=== PATIENT | female | born 1995 | race Caucasian/White ===

== ENCOUNTER → 2017-05-01 | Outpatient (REF) | payer OTHER | LOC: M LAB REF 16:59 | PROVIDERS: ATTEND Family Medicine | DX: Z12.4 Encounter for screening for malignant neoplasm of cervix (principal); R87.612 Low grade squamous intraepithelial lesion on cytologic smear of cervix (LGSIL); Z11.3 Encounter for screening for infections with a predominantly sexual mode of transmission ==

== ENCOUNTER → 2017-09-18 | Outpatient (CLI) | payer OTHER ==
[2017-09-18 13:55] LABS: LUTEINIZING HORMONE 14.4 mIU/mL
[2017-09-18 13:57] LABS: TESTOSTERONE 57 NG/DL (14-76)
== END ==
LOC: M SMT 11:06
DX: L70.0 Acne vulgaris (principal)
CPT/HCPCS: 83001

== ENCOUNTER → 2017-11-02 | Outpatient (CLI) | payer OTHER ==
[2017-11-03 09:38] LABS: HCG, SERUM QUANTITATIVE < 1.0 MIU/ML
[2017-11-03 09:39] LABS: CONTROL LINE HCG INT CTR LINE PRESENT; HCG, SERUM QUALITATIVE NEGATIVE (NEGATIVE)
== END ==
LOC: M SMT 15:17
DX: Z32.02 Encounter for pregnancy test, result negative (principal)
CPT/HCPCS: 84703

== ENCOUNTER → 2019-02-12 | Outpatient (CLI) | payer OTHER ==
[2019-02-12 20:26] LABS: HCG, SERUM QUALITATIVE NEGATIVE (NEGATIVE)
== END ==
LOC: M WUC 18:07
PROVIDERS: ATTEND Physician Assistant
DX: N92.6 Irregular menstruation, unspecified (principal)

== ENCOUNTER 2019-05-19 02:21 | Emergency (ER) | payer OTHER ==
[~2019-05-19] VITALS: Ht 165.1 cm; Wt 71.8 kg
[2019-05-19] MEDS ORDERED: ADDE1TAB14 PO (02:25)
[2019-05-19] MEDS ORDERED: SERT50TA29 PO (02:46)
[2019-05-19] MEDS ORDERED: BUPR150T3 PO (02:46)
[2019-05-19] MEDS ORDERED: NUVAMIS2 VG (02:46)
[2019-05-19 03:45] LABS: BASO % 0.5 % (0.0-1.0); EOS % 0.4 % (0.0-3.0); HEMATOCRIT 40.8 % (36.0-47.0); HEMOGLOBIN 14.2 g/dl (12.0-15.5); LYMPH # 2.4 10^3/uL (1.5-5.0); LYMPH % 42.3 % (24.0-44.0); MEAN CORPUSCULAR HGB CONC 34.8 g/dl (32.0-36.5); MEAN CORPUSCULAR VOLUME 86.1 fl (80.0-96.0); MONO # 0.3 10^3/uL (0.0-0.8); MONO % 5.9 % (0.0-5.0); NEUTROPHILS # 2.8 10^3/uL (1.5-8.5); NEUTROPHILS % 50.7 % (36.0-66.0); PLATELET COUNT, AUTOMATED 218 10^3/uL (150-450); RED BLOOD COUNT 4.74 10^6/uL (4.00-5.40); WHITE BLOOD COUNT 5.6 10^3/uL (4.0-10.0)
[2019-05-19] MEDS ORDERED: NS 1,000 ML IV ONE (03:45)
[2019-05-19] MEDS ORDERED: ONDANSETRON 4MG/2ML VIAL (J2405) IV ONE (03:45)
[2019-05-19 04:02] LABS: HCG, SERUM QUALITATIVE NEGATIVE (NEGATIVE)
[2019-05-19 04:18] LABS: ACETAMINOPHEN LEVEL < 2.0 UG/ML (10.0-30.0); ALBUMIN 3.9 GM/DL (3.2-5.2); ALT/SGPT 20 U/L (12-78); BILIRUBIN,DIRECT 0.1 MG/DL (0.0-0.2); BILIRUBIN,TOTAL 0.2 MG/DL (0.2-1.0); BLOOD UREA NITROGEN 13 MG/DL (7-18); CALCIUM LEVEL 8.5 MG/DL (8.5-10.1); CARBON DIOXIDE LEVEL 25 MEQ/L (21-32); CHLORIDE LEVEL 108 MEQ/L (98-107); CPK CREATINE PHOSPHOKINASE 152 U/L (26-192); CREATININE FOR GFR 0.85 MG/DL (0.55-1.30); ETHYL ALCOHOL (ETHANOL) 0.188 % (0.000-0.010); GLOMERULAR FILTRATION RATE > 60.0 (>60); GLUCOSE, FASTING 95 MG/DL (70-100); POTASSIUM SERUM 3.4 MEQ/L (3.5-5.1); SALICYLATE LEVEL < 1.7 MG/DL (5.0-30.0); SODIUM LEVEL 142 MEQ/L (136-145); TOTAL PROTEIN 7.3 GM/DL (6.4-8.2)
[2019-05-19 05:15] VITALS: BP 93/51
--- NOTE | 2019-05-19 08:19 | ECGEPIP ---
[facility] - ED Test Date: 2019-05-19 Pat Name: LACHELLE CASTELLANO Department: Room: - Gender: Female [employer]: : 1995 Requested By: LINWOOD Mix Order Number: [id number] Reading MD: Lois Gastelum Measurements Intervals [place] Rate: 61 P: AL: 0 QRS: 45 QRSD: 95 T: 10 QT: 414 QTc: 419 Interpretive Statements NSR NSTTW abnormalities No prior Electronically Signed on 05-19-2019 8:18:55 EDT by Lois Gastelum
== END 2019-05-19 05:32 | disposition home or self-care (01) ==
LOC: M ED 02:21
DX: F10.129 Alcohol abuse with intoxication, unspecified (principal); F90.9 Attention-deficit hyperactivity disorder, unspecified type; F32.9 Major depressive disorder, single episode, unspecified; F17.200 Nicotine dependence, unspecified, uncomplicated; Z79.899 Other long term (current) drug therapy
CPT/HCPCS: 80048; 80076; 82550; 84443; 84703; 85025; 93005; 93041; 94760; 96361; 96374; 99285; G0480; J2405

== ENCOUNTER → 2019-12-07 | Outpatient (REF) | payer OTHER ==
[~2019-12-07] MED LIST: ADDE1TAB14 PO; BUPR150T3 PO; NUVAMIS2 VG; SERT50TA29 PO
[2019-12-07 15:52] LABS: CHLAMYDIA DNA AMPLIFICATION NEGATIVE (NEGATIVE); GC DNA AMPLIFICATION NEGATIVE (NEGATIVE)
== END ==
LOC: M LAB 13:39
PROVIDERS: ATTEND Physician Assistant
DX: R30.0 Dysuria (principal); Z11.3 Encounter for screening for infections with a predominantly sexual mode of transmission

== ENCOUNTER → 2019-12-07 | Outpatient (CLI) | payer OTHER ==
[2019-12-09 10:37] LABS: HIV 1&2 SCREEN CENTAUR NEGATIVE (NEGATIVE)
== END ==
LOC: M WUC 11:56
PROVIDERS: ATTEND Physician Assistant
DX: Z11.3 Encounter for screening for infections with a predominantly sexual mode of transmission (principal); R30.0 Dysuria